=== PATIENT | male | born 1960 | race Caucasian/White ===

== ENCOUNTER 2019-02-18 10:45 | Emergency (ER) | payer BC ==
[2019-02-18 11:02] VITALS: BP 117/78
--- NOTE | 2019-02-18 11:37 | UC ---
General HPI - HPI Summary HPI Summary: pt was lifting a pipe at [employer] yesterday when he felt a sudden twinge in his L shoulder. he self tx with motrin without relief. - History of Current Complaint Chief Complaint: UCUpperExtremity Stated Complaint: LEFT SHOULDER INJURY/COMPLAINT Time Seen by Provider: 02/18/19 11:25 Hx Obtained From: Patient Onset/Duration: Sudden Onset Timing: Constant Pain Intensity: 7 Aggravating: movement Associated Signs & Symptoms: Negative: Edema - Allergy/Home Medications Allergies/Adverse Reactions: Allergies Allergy/AdvReac Type Severity Reaction Status Date / Time No Known Allergies Allergy Verified 02/18/19 11:03 PMH/Surg Hx/FS Hx/Imm Hx Previously Healthy: Yes - Surgical History Surgical History: Yes Surgery Procedure, Year, and Place: DOUBLE HERNIA AGE 4 - Family History Known Family History: Positive: Non-Contributory - Social History Lives: With Family Alcohol Use: Rare Substance Use Type: None Smoking Status (MU): Heavy Every Day Tobacco Smoker Review of Systems All Other Systems Reviewed And Are Negative: No Constitutional: Negative: Fever Skin: Negative: Rash Motor: Negative: Decreased ROM Musculoskeletal: Negative: Edema Neurological: Negative: Numbness Physical Exam Triage Information Reviewed: Yes Appearance: Well-Appearing Vital Signs: Initial Vital Signs Temp 98.0 F 02/18/19 10:58 Pulse 75 02/18/19 10:58 Resp 18 02/18/19 10:58 BP 117/78 02/18/19 10:58 Pulse Ox 100 02/18/19 10:58 Vital Signs Reviewed: Yes Neck: Positive: Supple, Nontender, No Lymphadenopathy Respiratory: Positive: No respiratory distress Cardiovascular: Positive: RRR Musculoskeletal: Positive: Other: - LUE: no deformity, swelling or discoloration. verye tender over the anterior and top of shoulder. clavicle and scapula are non tender. shoulder has full ROM but it causes discomfort. Pain with drop arm test but able to resist. negative anterior stress test. rest of arm is non tender and has full s/v/m function. Neurological: Positive: Alert Psychological: Positive: Age Appropriate Behavior Skin Exam: Normal Skin: Negative: Rashes Diagnostics - Radiology No standard instances Radiology Interpretation Completed By: Radiologist - IMPRESSION: AC joint arthritis. No fracture is noted. Course/Dx - Differential Dx - Multi-Symptom Differential Diagnoses: Other - no concern for infection. no fx or dislocation on xray. - Diagnoses Provider Diagnosis: Left shoulder strain Discharge - Sign-Out/Discharge Documenting (check all that apply): Patient Departure All imaging exams completed and their final reports reviewed: Yes - Discharge Plan Condition: Stable Disposition: HOME Prescriptions: Naproxen [Naprosyn 500 mg tab] 500 mg PO BID 5 Days #10 tablet Patient Education Materials: Rotator Cuff Injury (ED) Referrals: Jeovany Borjas MD [Medical Doctor] - As Soon As Possible - Billing Disposition and Condition Condition: STABLE Disposition: Home
== END 2019-02-18 12:24 | disposition home or self-care (01) ==
LOC: UCCORT 10:45
DX: S46.912A Strain of unspecified muscle, fascia and tendon at shoulder and upper arm level, left arm, initial encounter (principal); X50.0XXA Overexertion from strenuous movement or load, initial encounter; Y93.89 Activity, other specified; Y92.512 Supermarket, store or market as the place of occurrence of the external cause; F17.210 Nicotine dependence, cigarettes, uncomplicated
CPT/HCPCS: 99201; G0463